=== PATIENT | female | born 1995 ===

== ENCOUNTER 2022-07-20 13:51 | Inpatient (IN) | payer MEDICAID ==
[~2022-07-20] VITALS: Ht 170.2 cm; Wt 60.9 kg
[~2022-07-20 13:51] MED LIST: IBU800 M1 PO; PERCOCET 325 MG1 TA2 PO; PRENATAL PO; ZANTAC 150MG T150 MG PO
[2022-07-21] VITALS (20 sets, daily range): BP systolic 94–136; BP diastolic 49–71; PULSE 59–110; TEMP 97.9–98.3
--- NOTE | 2022-07-21 03:10 | NUR ---
0310 G2L1 40.4 WEEK GEST SCHEDULED FOR INDUCTION THIS AM DIRECT ADMIT TO LR4 IN LABOR. DR PEGUERO AWARE OF PT BEFORE ARRIVAL AND ORDERS GIVEN TO ADMIT. VERY UNCOMFORTABLE ON ADM. TO BED AND SVE WITH BULGY BOW. EFM ON. WANTING EPID.
--- NOTE | 2022-07-21 03:25 | NUR ---
0325 IV STARTED AND LAB OBTAINED. RE[employer] ASSISTANT CALLED FOR EPID PLACEMENT. 0340 SITTING ON SIDE OF BED FOR EPID. SEE ANESTHSIA RECORD FOR MORE INFORMATION
[2022-07-21 03:41] LABS: BASO % 0.4 % (0.0-2.0); EOS # 0.1 K/mm3 (0.0-0.7); EOS % 0.6 % (0.0-4.0); GRAN # 7.5 K/mm3 (1.4-6.5); GRAN % 68.8 % (42.2-75.2); LYMPH # 2.3 K/mm3 (1.2-3.4); LYMPH % 20.7 % (20.0-51.0); MEAN CELL VOLUME 79 fl (80.0-100.0); MEAN CORPUSCULAR HEMOGLOBIN 26 pg (27-31); MEAN CORPUSCULAR HGB CONC 33 g/dl (33.0-37.0); MEAN PLATELET VOLUME 10.8 fl (7.4-10.4); MONO % 8.9 % (1.7-9.3); PLATELET COUNT 294 K/mm3 (130-400); RED BLOOD COUNT 3.91 M/mm3 (4.10-5.30); REDCELL DISTRIBUTION WIDTH-CV 14.7 % (11.5-14.5)
[2022-07-21 03:42] LABS: HEMATOCRIT 30.7 % (37.0-47.0)
[2022-07-21] MEDS ORDERED: PROTONIX20 MG PO (03:55)
[2022-07-21] MEDS ORDERED: LEXAPRO20 MG PO (03:55)
--- NOTE | 2022-07-21 05:40 | NUR ---
[address] PEGUERO CALLED TO BEDSIDE FOR DEL. READIED FOR DELIVERY. 0548 DEL VIABLE MALE OVER INTACT PERINEUM WITH 8/9/9 APGARS. IV CONTS TO INFUSE.
--- NOTE | 2022-07-21 06:40 | NUR ---
PT ARRIVES AMBULATORY TO UNIT C/O "A GUSH OF FLUID THIS MORNING WHEN I WAS WALKING". PT'S PAD IN UNDERWEAR IS NOT SATURATED. PT REPORTS CONTRACTIONS Q10 MINUTES APART WITH MINIMAL PAIN, ABLE TO BREATHE THROUGH THEM. DENIES ANY BLEEDING. REPORTS POSITIVE MOVEMENT. SVE UPON ARRIVAL /-. NO FLUID ON GLOVE WITH SVE, AMNITEST NEGATIVE. INITIAL CATEGORY 1 TRACING ON EFM. TOCO TRACING CONTRACTIONS Q6-10MINUTES APART, PT DENIES PAIN. PT OFFERED JUG OF WATER AND ENCOURAGED TO DRINK. WILL NOTIFY OF PT'S ARRIVAL.
[2022-07-21] MEDS ORDERED: IBU800 M1 PO (09:39)
[2022-07-22 00:08] VITALS: BP 107/61; PULSE 70; TEMP 98.1
[2022-07-22 07:15] VITALS: BP 109/71; PULSE 78; TEMP 98.4
== END 2022-07-22 15:55 | disposition home or self-care (01) | DRG 807 ==
LOC: LDR 07-21 03:06 → OB 07-21 07:38
PROVIDERS: Obstetrics & Gynecology; ADMIT Student in an Organized Health Care Education/Training Program
PROC: 10E0XZZ Delivery of Products of Conception, External Approach (ICD-10-PCS; principal; 2022-07-21)
DX: O48.0 Post-term pregnancy (principal); Z37.0 Single live birth; O99.344 Other mental disorders complicating childbirth; F41.9 Anxiety disorder, unspecified; Z3A.40 40 weeks gestation of pregnancy; O70.0 First degree perineal laceration during delivery; O76 Abnormality in fetal heart rate and rhythm complicating labor and delivery; Z23 Encounter for immunization
CPT/HCPCS: J2590; J2795; J7120